=== PATIENT | female | born 1965 ===

== ENCOUNTER 2021-06-14 16:09 | Outpatient (RCR) | payer OTHER, SELFPAY | END 2021-06-23 23:59 | disposition home or self-care (01) | LOC: MPT 16:09 | PROVIDERS: PCP Family Medicine; Referring Provider Family Medicine; Visit Provider Family Medicine | DX: M25.561 Pain in right knee (principal) | CPT/HCPCS: 97110; 97140; 97161; G0283 ==

== ENCOUNTER 2021-06-24 06:00 | Outpatient (RCR) | payer OTHER, SELFPAY | END 2021-07-24 23:59 | disposition home or self-care (01) | LOC: MPT 06:00 | PROVIDERS: PCP Family Medicine; Referring Provider Family Medicine; Visit Provider Family Medicine | DX: M25.561 Pain in right knee (principal) | CPT/HCPCS: 97110; 97140; G0283 ==

== ENCOUNTER 2021-07-25 06:00 | Outpatient (RCR) | payer OTHER, SELFPAY | END 2021-08-23 23:59 | disposition home or self-care (01) | LOC: MPT 06:00 | PROVIDERS: PCP Family Medicine; Visit Provider Family Medicine | DX: M25.561 Pain in right knee (principal) | CPT/HCPCS: 97110; 97116; G0283 ==